=== PATIENT | female | born 2000 | race Two or more races ===

== ENCOUNTER 2021-01-03 23:06 | Emergency (ER) | payer MEDICAID ==
[~2021-01-03] VITALS: Ht 167.6 cm; Wt 49.9 kg
--- NOTE | 2021-01-03 23:11 | NUR ---
PT BIB RA 74 FROM HOME C/O INTERMITTENT BERTRAND SINCE THIS AM WITH N/V STARTED 1 HR [employer]LY[employer]. A/O X3, NO SOB OR LABORED BREATHING, AFEBRILE. DENIES CP/PRESSURE. ALL PULSES PALPABLE. CLEAR SPEECH, COMPLETE SENTENCES. BILATERAL HAND GRIBS EQUAL, NOTED WITH NO DEFICITS ON ALL EXTREMITIES.
--- NOTE | 2021-01-03 23:12 | NUR ---
DR. LINARES AT BEDSIDE, MSE IN PROGRESS.
[2021-01-03] MEDS ORDERED: METOCLOPRAMIDE HCL 10 MG/2 ML VIAL IV ONE (23:30)
[2021-01-03] MEDS ORDERED: CLONIDINE HCL 0.1 MG TABLET PO ONE (23:30)
[2021-01-03] MEDS ORDERED: KETOROLAC TROMETHAMINE 30 MG INJ IVP ONE (23:30)
[2021-01-03] MEDS ORDERED: diphenhydrAMINE 50 MG/1 ML VIAL IV ONE (23:30)
[2021-01-03] MEDS ORDERED: METOCLOPRAMIDE HCL 10 MG/2 ML VIAL ONE (23:36)
[2021-01-03] MEDS ORDERED: CLONIDINE HCL 0.1 MG TABLET ONE (23:36)
[2021-01-03] MEDS ORDERED: KETOROLAC TROMETHAMINE 30 MG INJ ONE (23:36)
[2021-01-03] MEDS ORDERED: diphenhydrAMINE 50 MG/1 ML VIAL ONE (23:36)
--- NOTE | 2021-01-03 23:37 | NUR ---
LAB AT BEDSIDE.
[2021-01-03 23:47] LABS: CREATININE 1.9 mg/dL (0.6-1.3); POTASSIUM 4.6 mmol/L (3.5-5.1)
[2021-01-03 23:54] LABS: HEMATOCRIT 34.7 % (31.2-41.9); MEAN CORPUSCULAR HEMOGLOBIN 25.5 uug (24.7-32.8); PLATELET COUNT (AUTO) 239 K/uL (179-408)
[2021-01-04] MEDS ORDERED: ATOV750O4 PO (00:04)
[2021-01-04] MEDS ORDERED: MYCO360T PO (00:04)
[2021-01-04] MEDS ORDERED: PATI8.4P PO (00:04)
[2021-01-04] MEDS ORDERED: AMLO-212 PO (00:04)
[2021-01-04] MEDS ORDERED: CALC650T30 PO (00:04)
[2021-01-04] MEDS ORDERED: CLONIDINE PATCH TD (00:04)
[2021-01-04] MEDS ORDERED: ISRA5CAP PO (00:04)
[2021-01-04] MEDS ORDERED: PRED20TA PO (00:04)
[2021-01-04] MEDS ORDERED: FERR325T28 PO (00:04)
[2021-01-04] MEDS ORDERED: CHOL1CRY2 MC (00:04)
[2021-01-04] MEDS ORDERED: CALC0.5C11 PO (00:04)
[2021-01-04] MEDS ORDERED: OMEP40CA21 PO (00:04)
[2021-01-04] MEDS ORDERED: HYDR200T4 PO (00:04)
[2021-01-04] MEDS ORDERED: MYCO180T PO (00:04)
[2021-01-04] MEDS ORDERED: EPOE3000 IJ (00:04)
[2021-01-04] MEDS ORDERED: hydrALAZINE HCL 20 MG/1 ML VIAL IV ONE ×2 (00:15→01:00)
[2021-01-04] MEDS ORDERED: hydrALAZINE HCL 20 MG/1 ML VIAL ONE ×2 (00:31→00:56)
[2021-01-04] MEDS ORDERED: LORAZEPAM 2 MG/1 ML VIAL ONE (00:50)
[2021-01-04] MEDS ORDERED: LABETALOL HCL 100 MG/20 ML VIAL IV ONE ×4 (01:00→04:00)
[2021-01-04] MEDS ORDERED: LABETALOL HCL 100 MG/20 ML VIAL ONE (01:00)
[2021-01-04] MEDS ORDERED: ADENOSINE 6 MG/2 ML SYR IV ONE ×2 (01:05→01:30)
--- NOTE | 2021-01-04 01:29 | NUR ---
PT TAKEN DOWN FOR CT.
[2021-01-04] MEDS ORDERED: LORAZEPAM 2 MG/1 ML VIAL IV ONE (01:30)
--- NOTE | 2021-01-04 01:52 | NUR ---
PT RETURNED FROM CT.
--- NOTE | 2021-01-04 02:53 | NUR ---
PT RESTING IN BED, EYES CLOSED, BREATHING EVEN AND UNLABORED. MOTHER AT BEDSIDE.
--- NOTE | 2021-01-04 03:35 | NUR ---
CALLED [facility] AT , SPOKE WITH JOESPH. FACE SHEET FAXED OVER TO [facility] AT .
[2021-01-04 04:04] VITALS: BP 145/92
--- NOTE | 2021-01-04 04:19 | NUR ---
JOESPH FROM [facility] CALLED BACK, PT HAS BEEN ACCEPTED. LOCATION: [address] ROOM [address]229 ACCEPTING DOCTOR: DR. TAYLOR REPORT #:
--- NOTE | 2021-01-04 04:27 | NUR ---
CALLED [facility], SPOKE WITH MARIO JOHNSON TRANSFER ETA OF 1 HR ([id number]).
--- NOTE | 2021-01-04 04:54 | NUR ---
[facility]
--- NOTE | 2021-01-04 04:59 | NUR ---
[facility] [address] AT BEDSIDE TO TRANSFER PT TO [facility] CALL NURSE MADE AWARE.
--- NOTE | 2021-01-04 05:08 | NUR ---
Patient Tranfers to outside Facility Physician:DR. TAYLOR Location: [address] [facility] ROOM 0103
== END 2021-01-04 05:11 | disposition short-term general hospital (02) ==
LOC: ER 23:09
DX: G40.409 Other generalized epilepsy and epileptic syndromes, not intractable, without status epilepticus (principal); M32.9 Systemic lupus erythematosus, unspecified; J32.3 Chronic sphenoidal sinusitis; R94.31 Abnormal electrocardiogram [ECG] [EKG]; I12.9 Hypertensive chronic kidney disease with stage 1 through stage 4 chronic kidney disease, or unspecified chronic kidney disease; N18.9 Chronic kidney disease, unspecified
CPT/HCPCS: 36415; 70450; 80048; 84702; 85025; 93005; 96374; 96375 ×2; 96376; 99291; J0153; J0360 ×2; J1200; J2060; J2765; J3490; J1885; J7040